=== PATIENT | male | born 1995 | race Caucasian/White ===

== ENCOUNTER 2016-09-02 20:37 | Emergency (ER) | payer OTHER ==
[~2016-09-02] VITALS: Ht 185.4 cm; Wt 160.0 kg
[~2016-09-02 20:37] MED LIST: BACL10TA PO; DICL75 PO
[2016-09-02 20:39] VITALS: BP 126/78; PULSE 80; RESP 16; TEMP 98.5; O2SAT 96
--- NOTE | 2016-09-02 22:19 | PD ---
HPI Chief Complaint: Cold / Flu Symptoms Time Seen by Provider: 22:10 Travel History International Travel<30 days: No Contact w/Intl Traveler<30days: No Traveled to known affect area: No History of Present Illness HPI 21-year-old male presents for evaluation of sore throat. Symptoms started 8 days ago. It hurts to swallow. Associated with cough for the past few days. No fevers or chills. He does note that he traveled [place] in July, otherwise no recent travel. He reports that his roommate had similar symptoms but they have resolved. No rash. He has been using [id number] cough and cold medications but symptoms persist which prompted evaluation. No other complaints. PFSH Social History Alcohol Use: No Tobacco Use: No Substance Use: No Allergies-Medications (Allergen,Severity, Reaction): Coded Allergies: No Known Allergies (Unverified , 02/05/16) Reported Meds & Prescriptions Reported Meds & Active Scripts Active Lioresal (Baclofen) 10 Mg Tab 10 Mg PO TID 10 Days Diclofenac Sodium 75 Mg Tab 75 Mg PO BID PRN 10 Days Review of Systems Except as stated in HPI: all other systems reviewed are Neg Physical Exam Narrative GENERAL: Well-developed well-nourished male in no acute distress SKIN: Warm and dry. HEAD: Atraumatic. Normocephalic. EYES: Pupils equal and round. No scleral icterus. No injection or drainage. ENT: No nasal bleeding or discharge. Mucous membranes pink and moist. No oral pharyngeal erythema or exudate. NECK: Trachea midline. No JVD. No lymphadenopathy. Neck supple. CARDIOVASCULAR: Regular rate and rhythm. No murmur appreciated. RESPIRATORY: No accessory muscle use. Clear to auscultation. Breath sounds equal bilaterally. Data Data Last Documented VS Vital Signs Date Time Temp Pulse Resp B/P Pulse Ox O2 Delivery O2 Flow Rate FiO2 09/02/16 20:39 98.5 80 16 126/78 96 Room Air Orders Group A Rapid Strep Screen (09/02/16 22:17) Strep Culture (Group A) (09/02/16 22:20) [facility] Medical Decision Making Medical Screen Exam Complete: Yes Emergency Medical Condition: Yes Medical Record Reviewed: Yes Differential Diagnosis Pharyngitis, tonsillitis, bronchitis, pneumonia, influenza Narrative Course 21-year-old male with sore throat for 1 week, call for a few days. Examination is benign. Rapid strep screen is negative. He appears to have a viral pharyngitis. He is stable for discharge. Diagnosis Primary Impression: Pharyngitis Qualified Code: J02.9 - Pharyngitis, unspecified etiology Departure Forms: School Release, Return to School Date: Sep 05, 2016 Tests/Procedures Additional Instructions: Take [id number] Tylenol or Motrin for symptom relief. Stay well hydrated well-nourished, get plenty of rest. Return for any emergent medical conditions. Med/Other Pt SpecificInfo: No Change to Meds Disposition: 01 DISCHARGE HOME Condition: Stable Cliff Oliver Sep 02, 2016 22:19
== END 2016-09-03 00:02 | disposition home or self-care (01) ==
LOC: NETRI 20:37
DX: J02.9 Acute pharyngitis, unspecified (principal)
CPT/HCPCS: 87081; 87880; 99283